=== PATIENT | female | born 1990 | race Caucasian/White ===

== ENCOUNTER 2022-03-16 23:15 | Emergency (ER) | payer BC, OTHER ==
[2022-03-16 23:53] VITALS: RESP 18; TEMP 98.7
[2022-03-17] MEDS ORDERED: LIDOCAINE 1% INJ 10MG/ML (5 ML VIAL-PF) SQ STA (03:35)
[2022-03-17] MEDS ORDERED: SULFAMETHOX-TMP 800-160MG 1 EACH TAB PO STA (03:38)
[2022-03-17] MEDS ORDERED: AZITHROMYCIN 250 MG TAB PO STA (03:38)
[2022-03-17] MEDS ORDERED: HYDROcodone/APAP 5-325MG 1 EACH TAB PO STA (03:40)
--- NOTE | 2022-03-17 05:08 | ED ---
Female Urogenital HPI - General Chief complaint: Urogenital Stated complaint: female gu Time Seen by Provider: 03/17/22 03:00 Source: patient Mode of arrival: ambulatory Limitations: no limitations - History of Present Illness Initial comments: This patient is 31-year-old woman who complains of having swelling and pain to the vulva. She states the symptoms had come on the day prior and have progressively gotten worse with more pain and swelling. She had noted the onset after intercourse. She states that there was no trauma during the intercourse. She has not noted change in urination or bowel movements. Last period was normal. No fevers. She did state there was some minimal discharge. MD Complaint: other Onset/Timin -: days(s) Location: labia Radiation: non-radiating Severity: severe Quality: aching Consistency: constant Improves with: none Worsens with: other (Sitting) Associated Symptoms: vaginal discharge - Related Data Previous Rx's Medication Instructions Recorded Doxycycline [Vibramycin] 100 mg PO BID 1 Days #14 capsule 03/17/22 Allergies Allergy/AdvReac Type Severity Reaction Status Date / Time No Known Allergies Allergy Verified 03/16/22 23:53 Review of Systems ROS Statement: Those systems with pertinent positive or pertinent negative responses have been documented in the HPI. ROS Other: All systems not noted in ROS Statement are negative. Constitutional: Denies: fever, chills Respiratory: Denies: cough, dyspnea Cardiovascular: Denies: chest pain Gastrointestinal: Denies: abdominal pain, vomiting, diarrhea, constipation Genitourinary: Reports: discharge. Denies: dysuria, frequency, hematuria, abnormal menses Musculoskeletal: Denies: back pain Skin: Denies: rash Past Medical History Additional Past Medical History / Comment(s): anemia History of Any Multi-Drug Resistant Organisms: None Reported Past Surgical History: No Surgical Hx Reported Past Psychological History: Depression Smoking Status: Vaper Past Alcohol Use History: Rare Past Drug Use History: None Reported General Exam Limitations: no limitations General appearance: alert, in no apparent distress Head exam: Present: atraumatic, normocephalic Eye exam: Present: normal appearance. Absent: scleral icterus, conjunctival injection Respiratory exam: Present: normal lung sounds bilaterally. Absent: respiratory distress, wheezes, rales, rhonchi, stridor Cardiovascular Exam: Present: regular rate, normal rhythm, normal heart sounds. Absent: systolic murmur, diastolic murmur, rubs, gallop GI/Abdominal exam: Present: soft. Absent: distended, tenderness, guarding, rebound, rigid, mass External exam: Present: erythema, swelling, other (Swelling and tenderness to the right labia minora consistent with cyst. Cyst is coming to a point at the [place]) Extremities exam: Present: normal inspection, normal capillary refill. Absent: pedal edema, calf tenderness Back exam: Absent: CVA tenderness (R), CVA tenderness (L) Neurological exam: Present: alert Skin exam: Present: warm, dry, intact, normal color. Absent: rash Course Vital Signs 03/16/22 03/17/22 23:50 05:40 Temperature 98.7 F 98.7 F Pulse Rate 81 65 Respiratory 18 18 Rate Blood Pressure 120/73 106/80 O2 Sat by Pulse 100 98 Oximetry Procedures - Incision & Drainage Consent Obtained: verbal consent Site: vulva/vagina Anesthetic Used: lidocaine 1% I&D Cleaning Method: Alcohol Wipe Scalpel Used: #11 I&D Drainage Obtained: Pus, Blood Packing: Other (Word catheter) Culture Obtained?: No Patient Tolerated Procedure: well, no complications Medical Decision Making - Lab Data Lab Results 03/17/22 03/17/22 Range/Units 04:21 04:21 Urine Color Yellow Urine Appearance Clear (Clear) Urine pH 5.5 (5.0-8.0) Ur Specific [place] 1.029 (1.001-1.035) Urine Protein Trace H (Negative) Urine Glucose (UA) Negative (Negative) Urine Ketones Negative (Negative) Urine Blood Negative (Negative) Urine Nitrite Negative (Negative) Urine Bilirubin Negative (Negative) Urine Urobilinogen <2.0 (<2.0) mg/dL Ur Leukocyte Esterase Negative (Negative) Urine HCG, Qual Not Detected (Not Detectd) Disposition Clinical Impression: Cyst of Bartholin's gland duct Disposition: HOME SELF-CARE Condition: Good Instructions (If sedation given, give patient instructions): Bartholin Cyst (ED) Prescriptions: Doxycycline [Vibramycin] 100 mg PO BID 1 Days #14 capsule Is patient prescribed a controlled substance at d/c from ED?: No Referrals: None,Stated [Primary Care Provider] - 1-2 days María Bower DO [Doctor of Osteopathic Medicine] - 1-2 days Time of Disposition: 05:05
[2022-03-17 05:38] LABS: Appearance,Urine Clear (Clear); Bilirubin,Urine Negative (Negative); Blood,Urine Negative (Negative); Color,Urine Yellow; Glucose,Urine (UA) Negative (Negative); Ketones,Urine Negative (Negative); Leukocyte Esterase,Urine Negative (Negative); Nitrite,Urine Negative (Negative); PH, Urine 5.5 (5.0-8.0); Protein,Urine Trace (Negative); Specific Gravity,Urine 1.029 (1.001-1.035); Urobilinogen,Urine <2.0 mg/dL (<2.0)
[2022-03-17 05:41] VITALS: BP 106/80; PULSE 65
== END 2022-03-17 05:41 | disposition home or self-care (01) ==
LOC: EC 23:15
DX: N75.0 Cyst of Bartholin's gland (principal); F17.209 Nicotine dependence, unspecified, with unspecified nicotine-induced disorders
CPT/HCPCS: 81003; 81025; 99284; 10060; J2001

== ENCOUNTER 2023-02-26 18:53 | Emergency (ER) | payer BC ==
[2023-02-26 19:26] VITALS: TEMP 98.1
[2023-02-26] MEDS ORDERED: MUPIROCIN 2% OINT 22 GM TUBE TOPICAL STA (20:13)
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
[2023-02-26 20:48] VITALS: BP 128/76; PULSE 76; RESP 16
== END 2023-02-26 21:02 | disposition home or self-care (01) ==
LOC: EC 18:53
DX: L55.9 Sunburn, unspecified (principal); F17.290 Nicotine dependence, other tobacco product, uncomplicated; Z86.59 Personal history of other mental and behavioral disorders
CPT/HCPCS: 99283